=== PATIENT | male | born 1950 | race Caucasian/White ===

== ENCOUNTER 2018-09-09 07:25 | Day surgery (SDC) | payer OTHER ==
--- OUTSIDE RECORDS SUMMARY | 2018-09-09 07:35 | XMS REPORT | Clinical Summary ---
:1950 Author Organization [facility] Address [address] [place] [address] Care Team Providers Name Role Phone Rivera Yepez MD Primary Care Provider Allergies No Known Allergies Medications Medication Sig Dispensed Refills Start Date End Date Status omeprazole (PriLOSEC) TK 1 C PO QD 1 11/07/2016 Active 20 MG capsule lisinopril Take 5 mg by 0 Active (PRINIVIL,ZESTRIL) 5 mg mouth daily. tablet fluticasone (FLONASE) SHAKE LQ AND U 1 0 05/04/2017 Active 50 mcg/actuation nasal SPR IEN QD spray Active Problems No known active problems Family History Medical History Relation Name Comments No Known Problems Father Alive at 88; has a pacemaker No Known Problems Mother Alive at 83. Relation Name Status Comments Father Mother Social History Tobacco Use Types Packs/Day Years Used Date Never Assessed Sex Assigned at Date Recorded Not on file Job Start Date Occupation Industry Not on file Not on file Not on file Travel History Travel Start Travel End No recent travel history available. Last Filed Vital Signs Not on file Plan of Treatment Health Maintenance Due Date Last Done Comments COLON CANCER SCREENING 2001 SHINGLES VACCINES (#1) 2001 65+ PNEUMOCOCCAL VACCINE (1 of 2 - PCV13) 2016 PNEUMOCOCCAL POLYSACCHARIDE VACCINE AGE 65 AND OVER 2016 INFLUENZA VACCINE 11/27/2018 Results Not on fileafter 09/08/2017 Insurance Payer Benefit Plan / Group Subscriber ID Type Phone Address [facility] xxxxxxxxxxxx PPO (Home) [place] [address] Advance Directives Patient has advance care planning documents on file. For more information, please contact:Andrez Rosen[address] [place] [address]
[2018-09-09] MEDS ORDERED: Ringers Lactate 1,000 ML IV ONE (07:53)
[2018-09-09] MEDS ORDERED: CEFAZOLIN/SWI 1gm 1 GM/10 ML SYR ONE (07:53)
[2018-09-09] MEDS ORDERED: MIDAZOLAM HCL 2 MG/2 ML INJ ONE (08:05)
[2018-09-09] MEDS ORDERED: PROPOFOL 200 MG/20 ML VIAL IV ONE (08:05)
[2018-09-09] MEDS ORDERED: FENTANYL CITR 100 MCG/2 ML ONE ×2 (08:05→08:45)
[2018-09-09] MEDS ORDERED: LIDOCAINE 2% MPF 5 ML VIAL ONE (08:06)
[2018-09-09] MEDS ORDERED: ONDANSETRON 4 MG/2 ML VIAL ONE (08:06)
[2018-09-09 08:12] LABS: Absolute Lymphocytes (CBC) 2.5 K/uL (0.7-4.9); Absolute Neutrophil 8.2 K/uL (1.8-8.0); Basophils % 0.8 % (0-1.3); Eosinophils % 1.3 % (0-4.4); Hematocrit 43.4 % (39.6-49.0); Lymphocytes % 20.9 % (15.3-44.8); Monocytes % 8.4 % (3.3-12.3); RBC Red Blood Cell Count 4.93 M/uL (4.33-5.43)
--- NOTE | 2018-09-09 08:47 | P.BOP ---
Preoperative diagnosis: cellulitis, abscess left buttock Postoperative diagnosis: same Primary procedure: Incision and drainage of LEft buttock abscess [id number] Estimated blood loss: <10cc Specimen: curture of pus. Findings: multiloculated abscess Anesthesia: General Complications: None Transferred to: Recovery Room Condition: Good
--- NOTE | 2018-09-09 10:30 | EKG ---
Test Date: 2018-09-09 Test Time: 07:56:00 Supervisor Plastics: TORI MEASUREMENT RESULTS: Intervals: Rate: 71 IA: 138 QRSD: 78 QT: 380 QTc: 412 [place]: P: 53 IA: 138 QRS: 50 T: 41 INTERPRETIVE STATEMENTS: Normal sinus rhythm Normal ECG Compared to ECG 02/02/2015 15:47:37 Sinus bradycardia no longer present Electronically Signed On 09-09-18 10:30:10 CDT by Manjinder Mccarty
[2018-09-09] MEDS ORDERED: CODEINE 30MG/APAP 300MG TAB ONE (10:45)
--- NOTE | 2018-09-10 05:41 | OP ---
Date of Procedure: 09/09/2018 Surgeon: Osbaldo Bell MD Diagnosis: Cellulitis and complex left buttock abscess. Procedure: Incision and drainage of left complex buttock abscess. Ebl: Less than 10 cc. Specimen: Culture of pus. Finding: Multiloculated abscess. Anesthesia: General. Complications: None. Indications: This is the case of a 68-year-old patient complaining of a left buttock cellulitis and abscess since several hours ago, very tender, draining pus. The patient was booked for incision and drainage of abscess with benefits, alternatives, and risks including, but not limited to infection, b leeding, damage to adjacent structures, anesthesia complication, recurrence, DC, and even . He also understands this may not relieve any symptoms. He might need more than 1 surgical intervention. He understands the importance of wound care. He says he has a family member who will do that. The area of concern was marked by me and the patient in the holding room. Description Of Procedure: The patient was brought to the operating room, placed in supine position. Anesthesia was done without complication. The patient was placed in lateral decubitus position with proper protection. Left buttock area was prepped and draped in sterile fashion. Local anesthesia w as applied followed by sharp incision of the skin. Immediately we got access to an abscess. This ab scess had multiple loculations, was about 15 x 15 cm. Devitalized tissue had to be removed with some purulent and fibrin tissue present that was mixed with some necrotic fat that was also debrided. Ga ve us access to an abscess. Loculations were explored, opened, irrigated, hemostasis obtained. Prio r to that, it was cultured. The patient tolerated the procedure well. Area was packed with dry dres sing. The patient was sent to Recovery in stable condition. Disposition: Home. Activity: As tolerated. No heavy lifting. Followup: Follow up in my office in 1 week. Call for appointment at [phone]. Dressings: Include wet-to-dry dressing daily. POLLY/ROJAS Voice ID: [id number] Report ID: [id number]
== END 2018-09-09 10:58 | disposition home or self-care (01) ==
LOC: OR 07:25
PROVIDERS: ATTEND Surgery
PROC: 0J990ZZ Drainage of Buttock Subcutaneous Tissue and Fascia, Open Approach (ICD-10-PCS; principal; 2018-09-09 08:15)
DX: L02.31 Cutaneous abscess of buttock (principal); L03.317 Cellulitis of buttock; I10 Essential (primary) hypertension; Z79.899 Other long term (current) drug therapy
CPT/HCPCS: 36415; 80048; 85025; 87070; 87075; 87077; 87186; 87205; 88304; 93005; J0690; J2250; J2405; J2704; J3010